=== PATIENT | female | born 1990 | race Caucasian/White ===

== ENCOUNTER 2021-11-04 16:21 | Emergency (ER) | payer OTHER, SELFPAY ==
--- NOTE | ~2021-11-04 | US_ITS ---
EXAMINATION: US ABDOMEN LIMITED CLINICAL INFORMATION: Right upper quadrant pain. COMPARISON: None TECHNIQUE: Real-time imaging of the right upper quadrant abdominal viscera. FINDINGS: PANCREAS: Normal. LIVER: Normal. The liver is normal in size. The liver contour is normal. Parenchymal echogenicity is normal. No focal hepatic lesion. There is no intrahepatic biliary duct dilatation seen. GALLBLADDER: There are gallstones. The gallbladder is physiologically distended without evidence of sludge, polyps, wall thickening or pericholecystic fluid. COMMON BILE DUCT: Normal in caliber measuring 0.3 cm in diameter. RIGHT KIDNEY: Normal. No hydronephrosis. No renal calculi or focal parenchymal lesions. The kidney measures 11 cm in maximum dimension. FREE FLUID: None. US/US abdomen limited IMPRESSION: Cholelithiasis without ultrasound evidence of acute cholecystitis.
[2021-11-04 16:26] VITALS: BP 145/86; PULSE 86; RESP 19; TEMP 36.6; O2SAT 99; BMI 23.1
[2021-11-04 16:35] LABS: MANUAL DIFF FLAG NO
[2021-11-04 16:36] LABS: Basophils Percent Auto 0.2 % (0-2); Eosinophils Absolute Auto 0.1 X10*3/uL (0.0-0.4); Eosinophils Percent Auto 1.3 % (0-4); Hematocrit 39.1 % (37.0-47.0); Hemoglobin 12.4 g/dl (12.0-16.0); Imm Gran Abs Auto 0.01 X10*3/uL (0.00-0.03); Imm Gran Pct Auto 0.1 % (0.0-0.4); Lymphocytes Absolute Auto 3.6 X10*3/uL (1.2-4.9); Lymphocytes Percent Auto 41.8 % (20-40); Mean Corpuscular HGB Conc 31.7 g/dl (31.0-35.0); Mean Corpuscular Hemoglobin 25.5 pg (27.0-33.0); Mean Corpuscular Volume 80.3 fL (80.0-98.0); Mean Platelet Volume 9.5 fL (9.4-12.3); Monocytes Absolute Auto 0.7 X10*3/uL (0.1-1.2); Monocytes Percent Auto 7.6 % (2-11); Neutrophils Absolute Auto 4.3 x10*3/uL (2.0-8.3); Platelet Count 275 X10*3/uL (160-400); Red Blood Count 4.87 X10*6/uL (4.20-5.50); Red Cell Distribution Width 15.2 % (11.0-16.0); White Blood Count 8.7 X10*3/uL (4.8-10.8)
--- NOTE | 2021-11-04 16:40 | ED.ABDPAIN ---
HPI - Abdominal Pain General Chief Complaint: Abdominal Pain Stated Complaint: STOMACH PAIN Time Seen by Provider: 11/04/21 16:29 Source: patient Mode of arrival: EMS Limitations: no limitations History of Present Illness HPI narrative: Patient presents to the emergency department for evaluation of upper abdominal pain. She reports onset of pain to be 1 hour ago. It has been constant. It is described as ?painful?, unable to describe otherwise. Reports pain to be 10/10. Denies aggravating or alleviating factors. Has associated nausea but no vomiting. Reports that just prior she had eaten pizza and had a lot today, she reports that [place] the [place] when this pain began and she called her significant other who called 911 and patient was transported to the hospital. Patient states that this has occurred 2 or 3 other times in the recent past all of which have occurred after she gave 08/12/2021. Denies any complications with that . Denies fevers, chills, heartburn, cough, chest pain, palpitations, shortness breath, difficulty breathing, vomiting, lower abdominal pain, constipation, diarrhea, dysuria, urinary frequency, abnormal vaginal discharge, pelvic pain. Denies possibility of , has not had return of her menses since her recent . MD elicited complaint: abdominal pain Pertinent past history: none Onset (ago): hour(s) Pain Consistency: constant Location: epigastric, LUQ and RUQ Severity: severe Pain scale (0-10): 10 Radiation: none Migration to: no migration Exacerbating factors: nothing Relieving factors: nothing Associated symptoms: nausea Related Data Allergies Allergy/AdvReac Type Severity Reaction Status Date / Time No Known Allergies Allergy Verified 11/04/21 16:38 Review of Systems Review of Systems Constitutional : No Weight loss, No Fever, No Chills ENT/Mouth :? No sore throat, No Rhinorrhea Eyes: No Swelling, No Redness Cardiovascular : No Chest Pain, No SOB, No Edema Respiratory : No Cough, No Sputum, No Wheezing Gastrointestinal : Positive Nausea, no Vomiting, no Diarrhea, positive abdominal pain, No Hematochezia, No Melena Genitourinary : No Dysuria, No Urinary Frequency, No Hematuria, No Urgency? Musculoskeletal : No joint pain, No Myalgias, No Joint Swelling Skin : No Skin Lesions, No rash Neuro : No Weakness, No Numbness, No Dizziness, No Headache Psych : No Anxiety/Panic, No Depression Yes all other systems are reviewed and are negative [facility] Past Medical History Attestation statement: The following information was validated with the patient. Source: old records reviewed Social History Social History Alcohol intake: never Patient Tobacco Use Status: Never used Tobacco Use of substances other than those prescribed or required for medical reasons: No Advance Directives: No Advance Directives Information Provided: No Patient : No Physical Exam ED Vital Signs: Vital Signs - 24 hr 11/04/21 16:26 11/04/21 16:43 11/04/21 17:54 Temperature 98 F Pulse Rate 86 97 66 Respiratory Rate 19 Blood Pressure 145/86 H 148/86 H 160/70 H Pulse Oximetry 99 100 BMI result Body Mass Index 23.1 Vital signs have been reviewed and appeared to be correct. Hypertensive.? Heart rate normal.? Respiration rate normal. Temperature normal.? Oxygen saturation normal. Appearance: Alert.?Oriented to person, place and time. No acute distress.?Normal affect. Eyes: Pupils equal, round and reactive to light.? ENT: Pharynx normal.?? Neck: Normal inspection.? Neck supple.?? CVS: Heart sounds normal. Normal heart rate and rhythm.? Pulses normal.?? Respiratory: No respiratory distress.? Lung sounds clear to auscultation bilaterally?? Abdomen: Soft with diffuse tenderness to palpation of the right upper quadrant, epigastrum, left upper quadrant. Negative Cruz sign. Normoactive bowel sounds. No pulsatile mass.?? Skin: Skin warm and dry.? Normal skin color.??? Extremities: No lower extremity edema.? Neuro: Moves all extremities spontaneously. Sensation intact bilaterally. CN II-XII intact. No focal neuro deficits. Ambulates with normal steady gait. Course Course Course Narrative: Patient is a 31-year-old female with no significant past medical history presenting for evaluation of upper abdominal pain with sudden onset 1 hour prior to arrival which is severe in nature. Overall she is well-appearing, nontoxic, afebrile. Will obtain CBC to evaluate for leukocytosis/ anemia, CMP and lipase to evaluate for abnormal electrolytes /abnormal renal function/ abnormal hepatic/biliary function. Ultrasound of the abdomen to evaluate for cholelithiasis, or additional intra-abdominal pathology. Patient to receive normal saline 1 L IV fluid, Zofran 4 mg IV, Toradol 30 mg IV. Disposition will be pending results. Reevaluation(s) Reevaluation #1: CBC is overall unremarkable. CMP overall unremarkable, mildly elevated AST of 49, ALT normal. Lipase is normal. Urinalysis without sign of infection. Ultrasound reveals cholelithiasis without distension, evidence of sludge wall thickening or pericholecystic fluid. Patient currently reports that her pain is much improved, just a dull ache right now , after receiving fluids Toradol and Zofran. Symptoms are most consistent with biliary colic. I discussed all findings with patient, advised NSAIDs for pain management, advised outpatient follow-up with a primary care provider, advised reasons return back to the emergency department, all questions were answered. She was discharged home in stable condition. Time: 18:27 [facility] - Abdominal Pain Lab Data Result diagrams: 11/04/21 16:31 11/04/21 16:31 Labs: Lab Results 11/04/21 11/04/21 11/04/21 Range/Units 16:31 16:31 17:57 WBC 8.7 (4.8-10.8) X10*3/uL RBC 4.87 (4.20-5.50) X10*6/uL Hgb 12.4 (12.0-16.0) g/dl Hct 39.1 (37.0-47.0) % MCV 80.3 (80.0-98.0) fL MCH 25.5 L (27.0-33.0) pg MCHC 31.7 (31.0-35.0) g/dl RDW 15.2 (11.0-16.0) % Plt Count 275 (160-400) X10*3/uL MPV 9.5 (9.4-12.3) fL Immature Gran % (Auto) 0.1 (0.0-0.4) % Neut % (Auto) 49.0 (45-73) % Lymph % (Auto) 41.8 H (20-40) % [place] % (Auto) 7.6 (2-11) % Eos % (Auto) 1.3 (0-4) % Baso % (Auto) 0.2 (0-2) % Lymph # (Auto) 3.6 (1.2-4.9) X10*3/uL [place] # (Auto) 0.7 (0.1-1.2) X10*3/uL Eos # (Auto) 0.1 (0.0-0.4) X10*3/uL Baso # (Auto) 0.0 (0.0-0.2) X10*3/uL Abs Immat Gran (auto) 0.01 (0.00-0.03) X10*3/uL Absolute Neuts (auto) 4.3 (2.0-8.3) x10*3/uL Absolute Nucleated RBC 0.000 (0.0-0.012) X10*3/uL Nucleated RBC % (auto) 0.0 (0.0-0.2) /100WBC Sodium 140 (135-145) mmol/L Potassium 3.6 (3.3-5.1) mmol/L Chloride 106 (96-108) mmol/L Carbon Dioxide 24 (22-29) mmol/L Anion Gap 14 (12-20) BUN 11 (9-16) mg/dL Creatinine 0.84 (0.5-1.4) mg/dL Estim Creat Clear Calc 83.0 Estimated GFR > 60 Random Glucose 107 (60-115) mg/dL Calcium 9.5 (8.4-10.2) mg/dL Total Bilirubin 0.5 (0.0-1.0) mg/dL Direct Bilirubin 0.2 (0.0-0.5) mg/dL AST 49 H (5-31) U/L ALT 23 (0-31) U/L Alkaline Phosphatase 101 (39-117) U/L Total Protein 7.7 (6.5-8.0) g/dL Albumin 4.5 (3.5-5.0) g/dL Lipase 32 (8-78) U/L Beta HCG, Quant < 2 mIU/mL Urine Color YELLOW Urine Appearance CLEAR Urine pH 7.0 (5.0-8.0) Ur Specific [place] 1.010 (1.005-1.025) Urine Protein NEG (NEG-TRACE) MG/DL Urine Glucose (UA) NEG (NEG) MG/DL Urine Ketones NEG (NEG) MG/DL Urine Blood NEG (NEG) Urine Nitrite NEG (NEG) Ur Leukocyte Esterase NEG (NEG) Discharge Plan Discharge Clinical Impression: Cholelithiasis, Biliary colic Patient Disposition: Home, Self-Care Instructions: Biliary Colic (ED), Gallstones (ED) Additional Instructions: The ultrasound revealed that you have gallstones. Please contact your primary care provider to schedule a follow-up visit within 1-3 days. You may use ibuprofen as needed for your pain. You can return to the emergency department with any new or worsening symptoms or concerns. If you develop fevers, shaking chills, severe persistent abdominal pain, nausea persistent vomiting, you should come back for evaluation. Interventions: ED Discharge Assessment Last Done: 11/04/21 19:02 Discharge Date/Time: 11/04/21 19:02
[2021-11-04 16:43] VITALS: BP 148/86; PULSE 97; O2SAT 100
--- NOTE | 2021-11-04 16:50 | PC.NURSE ---
pt medicated per provider order, pt declined IV zofran, IVF started.
[2021-11-04 16:54] LABS: Alanine Aminotransferase 23 U/L (0-31); Albumin Level 4.5 g/dL (3.5-5.0); Alkaline Phosphatase 101 U/L (39-117); Anion Gap 14 (12-20); Aspartate Amino Transferase 49 U/L (5-31); Bilirubin Direct 0.2 mg/dL (0.0-0.5); Bilirubin Total 0.5 mg/dL (0.0-1.0); Blood Urea Nitrogen 11 mg/dL (9-16); Calcium 9.5 mg/dL (8.4-10.2); Carbon Dioxide 24 mmol/L (22-29); Chloride 106 mmol/L (96-108); Estimated Glomerular Filt Rate > 60; Glucose Random 107 mg/dL (60-115); Lipase 32 U/L (8-78); Potassium 3.6 mmol/L (3.3-5.1); Sodium 140 mmol/L (135-145); Total Protein 7.7 g/dL (6.5-8.0)
[2021-11-04] MEDS: Ketorolac Tromethamine 30 MG/ML VIAL IVPUSH (16:58)
[2021-11-04] MEDS: 0.9 % Sodium Chloride 1,000 ML 999 ML IV (16:59)
[2021-11-04 17:11] LABS: HCG Quantitative < 2 mIU/mL
[2021-11-04 17:54] VITALS: BP 160/70; PULSE 66
--- NOTE | 2021-11-04 17:55 | PC.NURSE ---
pt a&ox3, vss, pt reports reduction in epigastric pain, still having some nausea. no new orders at this time.
[2021-11-04 18:07] LABS: Appearance Urine CLEAR; Color Urine YELLOW; Glucose Urine UA NEG (NEG); Leukocyte Esterase Urine NEG (NEG); Nitrite Urine NEG (NEG); Urine Blood NEG (NEG); Urine Ketones NEG (NEG); Urine Protein NEG (NEG-TRACE)
== END 2021-11-04 19:02 | disposition home or self-care (01) ==
PROVIDERS: Nurse Practitioner Family; Emergency Provider Emergency Medicine
DX: K80.20 Calculus of gallbladder without cholecystitis without obstruction (principal); K80.50 Calculus of bile duct without cholangitis or cholecystitis without obstruction; Z79.899 Other long term (current) drug therapy
CPT/HCPCS: 36415; 76705; 80048; 80076; 81003; 83690; 84702; 85025; 96361; 96374; 96375; 99284; J1885

== ENCOUNTER 2021-11-05 10:04 | Emergency (ER) | payer OTHER, SELFPAY ==
[2021-11-05 10:27] VITALS: BP 148/88; PULSE 65; RESP 20; TEMP 36.6; O2SAT 98; BMI 23.1
== END 2021-11-05 14:39 | disposition left against medical advice (07) ==
PROVIDERS: Emergency Provider Emergency Medicine
DX: K80.20 Calculus of gallbladder without cholecystitis without obstruction (principal)
CPT/HCPCS: 99281; 99282

== ENCOUNTER 2024-04-27 16:37 | Emergency (ER) | payer MEDICAID, SELFPAY ==
--- NOTE | ~2024-04-27 | US_ITS ---
EXAMINATION: US ABDOMEN LIMITED CLINICAL INFORMATION: Right upper quadrant pain. COMPARISON: None available. TECHNIQUE: Real-time imaging of the right upper quadrant abdominal viscera. FINDINGS: PANCREAS: Normal. LIVER: The liver is normal in size. The liver contour is normal. There is minimally increased liver parenchymal echogenicity suggesting hepatic steatosis. No focal hepatic lesion. There is no intrahepatic biliary duct dilatation seen. GALLBLADDER: Surgically absent. COMMON BILE DUCT: Normal in caliber measuring 0.2 cm in diameter. RIGHT KIDNEY: No hydronephrosis. No renal calculi or focal parenchymal lesions. The kidney measures 11.0 cm in maximum dimension. FREE FLUID: None. US/US abdomen limited IMPRESSION: Minimally increased echogenicity of the liver suggesting hepatic steatosis. Electronically signed by: Sriram Miles MD 04/27/2024 07:44 PM EDT
--- NOTE | ~2024-04-27 | CT_ITS ---
EXAMINATION: CT ABDOMEN AND PELVIS WITH CONTRAST CLINICAL INFORMATION: Epigastric pain and elevated lipase COMPARISON: Ultrasound from the same day earlier TECHNIQUE: Multidetector volumetric images were obtained from the superior aspect of the liver through the pubic symphysis following administration 85 mL of Omnipaque 350 intravenous contrast. Sagittal and coronal reformatted images were obtained on the technologist's workstation. Oral contrast: No This CT examination was performed using dose optimization techniques as appropriate, variously including the following: *Automated exposure control *Adjustment of mA and/or kV according to patient size (this includes techniques or standardized protocols for targeted exams where dose is matched to indication/reason for exam; i.e. extremities or head) *Use of iterative reconstruction technique DLP: 428 mGy-cm FINDINGS: LUNG BASES: Unremarkable LIVER, GALLBLADDER, AND BILIARY TREE: The small low-attenuation lesions in the right lobe of the liver, but small to characterize but most likely hemangiomas or cysts. Gallbladder surgically absent. PANCREAS: There is small amount of peripancreatic fluid collection surrounding pancreatic head and uncinate process as well as extending towards the tip of the right lobe of the liver. Findings are suggestive for pancreatitis. There are no pancreatic masses or pseudocysts formation. SPLEEN: Unremarkable. ADRENAL GLANDS: Unremarkable. KIDNEYS AND URETERS: The kidneys are normal in size, shape, and attenuation. No hydronephrosis, hydroureter, or calculi seen. No perinephric stranding. BLADDER: Unremarkable. GASTROINTESTINAL TRACT: Stomach and small bowel loops unremarkable. Loops of colon are normal without diverticulitis or diverticulosis. Appendix is normal. There is small amount of ascites surrounding right lobe of the liver extending along the right flank. ABDOMINAL WALL: No significant hernia is appreciated. LYMPH NODES: Normal. VASCULAR: Unremarkable. PELVIC VISCERA: Unremarkable. OSSEOUS STRUCTURES: Unremarkable. CT/CT abdomen pelvis w IV con IMPRESSION: Findings suggestive for acute pancreatitis. Small hepatic lesions are likely due to hemangiomas or cysts. Fleischner guidelines were followed. Electronically signed by: Maninder De La Garza MD 04/27/2024 10:00 PM EDT
[2024-04-27 16:43] VITALS: BP 127/80; PULSE 80; RESP 19; TEMP 36.6; O2SAT 98; BMI 25.7
--- NOTE | 2024-04-27 16:43 | ED.ABDPAIN ---
HPI - Abdominal Pain General Chief Complaint: Abdominal Pain Stated Complaint: Abd pain, nausea Time Seen by Provider: 04/27/24 18:18 Source: patient, RN notes reviewed and old records reviewed Mode of arrival: ambulatory Limitations: no limitations History of Present Illness ED Provider: [place] LVOELL narrative: 33-year-old female who is status post cholecystectomy but denies any medical history presents for evaluation of upper abdominal pain Patient reports mid upper abdominal pain for the last 2 days with associated nausea Her pain waxes and wanes in intensity but is always present. Currently her pain is a 7/10 She denies any fevers, chills. She is still passing gas and having bowel movements No other complaints or concerns at this time She reports the pain came on suddenly and not immediately after eating Denies alcohol abuse She does report a history of GERD and gastritis but has not had any issues for several years Related Data Previous Rx's ?Medication ?Instructions ?Recorded ondansetron 4 mg disintegrating 4 mg PO Q8H PRN nausea and 04/27/24 tablet vomiting #20 tabs Allergies Allergy/AdvReac Type Severity Reaction Status Date / Time No Known Allergies Allergy Verified 04/27/24 16:44 Review of Systems Constitutional: Denies body ache(s), Denies chills, Denies fever(s) and Denies headache(s) Eyes: Denies blurry vision Denies vertigo, Denies dizziness and Denies headache(s) Cardiovascular: Denies chest pain and Denies dyspnea Respiratory: Denies cough and Denies dyspnea Gastrointestinal: Reports abdominal pain, Reports nausea and Denies vomiting Genitourinary: Denies dysuria Musculoskeletal: Denies back pain Skin/Breast: Denies rash Denies vertigo, Denies dizziness and Denies headache(s) [facility] Social History Social History Alcohol intake: never Patient Tobacco Use Status: Never used Tobacco Smoked in Last 30 Days: No Use of substances other than those prescribed or required for medical reasons: No Advance Directives: No Advance Directives Information Provided: No Do you have a plan to hurt others: No Plan Physical Exam ED Vital Signs: Vital Signs - 24 hr 04/27/24 16:43 04/27/24 18:35 04/27/24 20:52 Temperature 98 F 98.9 F 98.2 F Pulse Rate 80 68 64 Respiratory Rate 19 18 16 Blood Pressure 127/80 118/58 L 105/60 Pulse Oximetry 98 99 99 Oxygen Delivery Method Room Air Room Air Room Air BMI result Body Mass Index 25.7 Const General: healthy appearing, comfortable, no acute distress, alert and awake Nutritional Appearance: well nourished Orientation/consciousness: patient oriented x3 HENMT Head: Yes normocephalic and Yes atraumatic Eyes Eyelids: Yes eyelids normal Conjunctivae: conjunctivae normal Sclerae: sclerae normal Corneas: corneas normal Pupils: Equal, round and reactive pupils present EOM: EOMs intact bilaterally Neck Neck: Yes full ROM Resp Effort & Inspection: normal respiratory effort, able to speak in complete sentences and not labored Cardio Rate: regular rate Rhythm: regular rhythm GI Inspection: No distended Palpation (GI): Soft to palpation, not firm, Tenderness to palpation present (GI) in the epigastrum, no guarding and not rigid Auscultation: normoactive bowel sounds Skin General skin exam: elasticity normal Neuro General: patient oriented x3 Cranial nerves: Yes Equal, round and reactive pupils present and Yes Bilaterally intact EOM present Cognition (Neuro): normal cognition Extrem Other: Moving all extremities well without any obvious deformities Course Course Course Narrative: This is a Rapid Medical Exam performed in triage by Shari Vasquez PA-C. Full HPI, ROS and PE to be performed by primary ED provider. 33 yo F w/PMHx cholecystectomy 2 years ago presenting to the ED c/o RUQ/epigastric abdominal pain w/nausea x2 days. denies V/D. +decreased PO intake. PE: Abdomen soft with epigastric/RUQ tenderness, no rebound or guarding Plan: Labs, UA, ultrasound Reevaluation(s) Reevaluation #1: Patient's CT scan does show findings consistent with mild pancreatitis, there is no evidence of pseudocyst. her lipase again, is 88. She does have mild discomfort but has so far declined analgesia and feels she can manage at home. We will treat her with IV fluids. She denies any alcohol abuse, she is already status post cholecystectomy. She does not take any medications I will add on triglycerides as that is the most likely cause of her pancreatitis. The patient does not wish to be admitted to the hospital for pancreatitis, I discussed liquid diet with the patient and return precautions Time: 22:18 Medical Decision Making Medical Decision Making [facility] Narrative: 33-year-old female with past medical history as documented above presents for evaluation of upper abdominal pain. Her pain is random, waxes and wanes in intensity. She had associated nausea. Given the location of her pain on the differential his biliary disease, pancreatitis, peptic ulcer disease, obstipation, constipation. The patient is already status post cholecystectomy, her lipase is slightly elevated to 88 but not elevated enough to indicate pancreatitis. An ultrasound was ordered of the right upper quadrant in triage, but I have a low suspicion this will explain her abdominal pain as she is already status post cholecystectomy. Therefore, plan for CT scan of the abdomen pelvis. The patient declines analgesia at this time. Her labs are reviewed and show a slight elevation of the AST to 64 and the elevated lipase as documented above. No other significant lab abnormalities Differential Diagnosis Differential Diagnoses: The differential diagnosis associated with the presentation includes Gastritis Pancreatitis Peptic ulcer disease Choledocholithiasis Constipation Admission/Observation Consideration of admission/observation: Escalation of care including admission/observation considered Lab Data [facility] Lab Attestation statement: I reviewed the patient's lab results. 04/27/24 17:03 04/27/24 17:03 Labs: Lab Results 04/27/24 Range/Units 17:03 WBC 9.0 (4.8-10.8) X10*3/uL RBC 4.69 (4.20-5.50) X10*6/uL Hgb 13.4 (12.0-16.0) g/dl Hct 39.6 (37.0-47.0) % MCV 84.4 (80.0-98.0) fL MCH 28.6 (27.0-33.0) pg MCHC 33.8 (31.0-35.0) g/dl RDW 12.7 (11.0-16.0) % Plt Count 319 (160-400) X10*3/uL MPV 9.9 (9.4-12.3) fL Immature Gran % (Auto) 0.2 (0.0-0.4) % Neut % (Auto) 60.7 (45-73) % Lymph % (Auto) 30.4 (20-40) % [place] % (Auto) 7.3 (2-11) % Eos % (Auto) 1.2 (0-4) % Baso % (Auto) 0.2 (0-2) % Lymph # (Auto) 2.7 (1.2-4.9) X10*3/uL [place] # (Auto) 0.7 (0.1-1.2) X10*3/uL Eos # (Auto) 0.1 (0.0-0.4) X10*3/uL Baso # (Auto) 0.0 (0.0-0.2) X10*3/uL Abs Immat Gran (auto) 0.02 (0.00-0.03) X10*3/uL Absolute Neuts (auto) 5.5 (2.0-8.3) x10*3/uL Absolute Nucleated RBC 0.000 (0.0-0.012) X10*3/uL Nucleated RBC % (auto) 0.0 (0.0-0.2) /100WBC Sodium 139 (135-145) mmol/L Potassium 3.5 (3.3-5.1) mmol/L Chloride 106 (96-108) mmol/L Carbon Dioxide 24 (22-29) mmol/L Anion Gap 13 (12-20) BUN 10 (9-16) mg/dL Creatinine 0.82 (0.5-1.4) mg/dL Estim Creat Clear Calc 91.5 Estimated GFR > 60 Random Glucose 97 (60-115) mg/dL Calcium 9.3 (8.4-10.2) mg/dL Magnesium 1.9 (1.6-2.6) mg/dL Total Bilirubin 0.2 (0.0-1.0) mg/dL Direct Bilirubin < 0.2 (0.0-0.5) mg/dL AST 64 H (5-31) U/L ALT 17 (0-31) U/L Alkaline Phosphatase 49 (39-117) U/L Total Protein 7.9 (6.5-8.0) g/dL Albumin 4.6 (3.5-5.0) g/dL Triglycerides 205 H (<150) mg/dL Lipase 88 H (8-78) U/L Urine Color Yellow Urine Appearance Clear Urine pH 7.0 (5.0-9.0) Ur Specific [place] 1.015 (1.005-1.025) Urine Protein Negative (Neg-Trace) mg/dL Urine Glucose (UA) Negative (Negative) mg/dL Urine Ketones Negative (Negative) mg/dL Urine Blood Negative (Negative) Urine Nitrite Negative (Negative) Ur Leukocyte Esterase Negative (Negative) Urine Test NEGATIVE (NEGATIVE) Radiology Impression Discussion of test interpretation with radiology: I have reviewed the radiologist's reading. Radiologist Impression: CT/CT abdomen pelvis w IV con IMPRESSION: Findings suggestive for acute pancreatitis. Small hepatic lesions are likely due to hemangiomas or cysts. Fleischner guidelines were followed. Electronically signed by: Maninder De La Garza MD 04/27/2024 10:00 PM EDT RP Medications Administered Generic Name Dose Route Start Last Admin Trade Name Freq PRN Reason Stop Dose Admin Sodium Chloride 1,000 mls @ 999 mls/hr 04/27/24 22:30 04/27/24 22:22 Ns IV 04/27/24 23:30 999 mls/hr .[id number] RAMON Administration Discontinued Medications Generic Name Dose Route Start Last Admin Trade Name Freq PRN Reason Stop Dose Admin Iohexol 85 ml 04/27/24 19:57 04/27/24 19:57 Iohexol 350 Mg/Ml 100 Ml Infus..Btl IV 04/27/24 19:58 85 ml ONCE ONE Administration Discharge Plan Discharge Clinical Impression: Abdominal pain, Pancreatitis Patient Disposition: Home, Self-Care Instructions: Pancreatitis (ED) Additional Instructions: Your CT scan did show pancreatitis with no significantly concerning features. The treatment for this is bowel rest and fluids/hydration. I recommend a liquid diet for the next 2-3 days, you may advance slowly if your pain is improving Follow-up with your primary doctor, return for new or worsening symptoms Prescriptions: New ondansetron 4 mg tablet,disintegrating 4 mg PO Q8H PRN (Reason: nausea and vomiting) Qty: 20 0RF Print Language: Hungarian
[2024-04-27 17:06] LABS: MANUAL DIFF FLAG NO
[2024-04-27 17:10] LABS: Appearance Urine Clear; Color Urine Yellow; Glucose Urine UA Negative (Negative); Leukocyte Esterase Urine Negative (Negative); Nitrite Urine Negative (Negative); Specific Gravity - Urine 1.015 (1.005-1.025); Urine Blood Negative (Negative); Urine Ketones Negative (Negative); Urine Protein Negative (Neg-Trace)
[2024-04-27 17:12] LABS: Basophils Percent Auto 0.2 % (0-2); Eosinophils Absolute Auto 0.1 X10*3/uL (0.0-0.4); Eosinophils Percent Auto 1.2 % (0-4); Hematocrit 39.6 % (37.0-47.0); Hemoglobin 13.4 g/dl (12.0-16.0); Imm Gran Abs Auto 0.02 X10*3/uL (0.00-0.03); Imm Gran Pct Auto 0.2 % (0.0-0.4); Lymphocytes Absolute Auto 2.7 X10*3/uL (1.2-4.9); Lymphocytes Percent Auto 30.4 % (20-40); Mean Corpuscular HGB Conc 33.8 g/dl (31.0-35.0); Mean Corpuscular Hemoglobin 28.6 pg (27.0-33.0); Mean Corpuscular Volume 84.4 fL (80.0-98.0); Mean Platelet Volume 9.9 fL (9.4-12.3); Monocytes Absolute Auto 0.7 X10*3/uL (0.1-1.2); Monocytes Percent Auto 7.3 % (2-11); Neutrophils Absolute Auto 5.5 x10*3/uL (2.0-8.3); Neutrophils Percent Auto 60.7 % (45-73); Platelet Count 319 X10*3/uL (160-400); Red Blood Count 4.69 X10*6/uL (4.20-5.50); Red Cell Distribution Width 12.7 % (11.0-16.0); UPreg QC Valid YES; Urine Pregnancy NEGATIVE (NEGATIVE)
[2024-04-27 17:24] LABS: Alanine Aminotransferase 17 U/L (0-31); Albumin Level 4.6 g/dL (3.5-5.0); Alkaline Phosphatase 49 U/L (39-117); Anion Gap 13 (12-20); Aspartate Amino Transferase 64 U/L (5-31); Bilirubin Direct < 0.2 mg/dL (0.0-0.5); Bilirubin Total 0.2 mg/dL (0.0-1.0); Blood Urea Nitrogen 10 mg/dL (9-16); Calcium 9.3 mg/dL (8.4-10.2); Carbon Dioxide 24 mmol/L (22-29); Chloride 106 mmol/L (96-108); Creatinine Clr Calc Pharmacy 91.5; Estimated Glomerular Filt Rate > 60; Glucose Random 97 mg/dL (60-115); Lipase 88 U/L (8-78); Magnesium 1.9 mg/dL (1.6-2.6); Potassium 3.5 mmol/L (3.3-5.1); Sodium 139 mmol/L (135-145); Total Protein 7.9 g/dL (6.5-8.0)
[2024-04-27 18:35] VITALS: BP 118/58; PULSE 68; RESP 18; TEMP 37.2; O2SAT 99
--- NOTE | 2024-04-27 19:18 | PC.NURSE ---
Assumed care of pt. Pt lying on stretcher, no acute distress at this time.
[2024-04-27] MEDS: iohexoL 350 MG/ML 100 ML INFUS..BTL 85 ML IV (19:57)
[2024-04-27 20:52] VITALS: BP 105/60; PULSE 64; RESP 16; TEMP 36.8; O2SAT 99
[2024-04-27] MEDS: 0.9 % Sodium Chloride 1,000 ML 999 ML IV (22:22)
[2024-04-27 22:42] LABS: Triglycerides 205 mg/dL (<150)
[2024-04-27] MEDS: ondansetron HCL 4 MG/2 ML VIAL IVPUSH (23:27)
--- NOTE | 2024-04-27 23:32 | MHC.EDTECH ---
this tech assumed care of pt at 2300. When rounding on pt she was witnessed in bed, awake, in no apparent distress. When asked if she was in need of anything she stated that she was All set. Call light within reach for safety.
[2024-04-28 00:06] VITALS: BP 110/60; PULSE 65; RESP 17; TEMP 36.6; O2SAT 100
[2024-04-28 00:11] VITALS: BP 110/60; PULSE 65; RESP 17; TEMP 36.6; O2SAT 100
== END 2024-04-28 00:12 | disposition home or self-care (01) ==
PROVIDERS: Physician Assistant; Emergency Provider Emergency Medicine
DX: K85.90 Acute pancreatitis without necrosis or infection, unspecified (principal); R10.10 Upper abdominal pain, unspecified; M79.10 Myalgia, unspecified site; R11.0 Nausea; R10.2 Pelvic and perineal pain; Z79.899 Other long term (current) drug therapy
CPT/HCPCS: 36415; 74177; 76705; 80048; 80076; 81003; 81025; 83690; 83735; 84478; 85025; 96361; 96374; 99284; J2405; Q9967